=== PATIENT | female | born 1940 | race Caucasian/White ===

== ENCOUNTER 2022-11-16 12:54 | Outpatient (CLI) | payer MEDICARE | END 2022-11-16 12:55 | disposition home or self-care (01) | LOC: CSHCT 12:54 | PROVIDERS: ATTEND Internal Medicine Critical Care Medicine | DX: R91.1 Solitary pulmonary nodule (principal); R91.8 Other nonspecific abnormal finding of lung field | CPT/HCPCS: 71250; 82565 ==